=== PATIENT | male | born 1985 | race African-American/Black ===

== ENCOUNTER 2020-07-13 00:06 | Emergency (ER) | payer OTHER ==
[~2020-07-13] VITALS: Ht 177.8 cm; Wt 79.0 kg
[2020-07-13] MEDS ORDERED: DIFLUCAN150 M1 PO (00:22)
[2020-07-13] MEDS ORDERED: IBU600 MG PO (00:22)
[2020-07-13] MEDS ORDERED: FLEXERIL PO (01:16)
[2020-07-13 01:22] VITALS: BP 144/68
== END 2020-07-13 01:22 | disposition home or self-care (01) ==
LOC: M.ERS 00:06
DX: S06.0X0A Concussion without loss of consciousness, initial encounter (principal); G47.00 Insomnia, unspecified; W22.8XXA Striking against or struck by other objects, initial encounter; Y93.89 Activity, other specified; Y92.89 Other specified places as the place of occurrence of the external cause; Y99.9 Unspecified external cause status